=== PATIENT | male | born 1960 ===

== ENCOUNTER 2019-01-17 17:26 | Emergency (ER) | payer SELFPAY ==
--- NOTE | 2019-01-17 17:34 | UC ---
Hand/Wrist HPI - HPI Summary HPI Summary: 58 yo male presents with LEFT middle finger injury. He tells me that he was at work and a piece of machinery crushed the tip of his left middle finger. He states he normally would just put a bandage on it and continue about his day, but his work made him get checked out. He is right handed. Has not iced the area or taken anything OTC for pain. - History Of Current Complaint Stated Complaint: FINGER INJURY Time Seen by Provider: 01/17/19 17:34 Hx Obtained From: Patient Onset/Duration: Sudden Onset Severity Initially: Mild Severity Currently: Mild Pain Intensity: 2 Pain Scale Used: 0-10 Numeric - Allergies/Home Medications Allergies/Adverse Reactions: Allergies Allergy/AdvReac Type Severity Reaction Status Date / Time No Known Allergies Allergy Verified 01/17/19 17:49 PMH/Surg Hx/FS Hx/Imm Hx - Additional Past Medical History Additional PMH: None - Family History Known Family History: Positive: Unknown - Social History Occupation: Employed Full-time Lives: With Family Alcohol Use: Occasionally Substance Use Type: None Smoking Status (MU): Current Every Day Smoker Review of Systems All Other Systems Reviewed And Are Negative: Yes Constitutional: Positive: Negative Skin: Positive: Other - lac left middle finger Respiratory: Positive: Negative Cardiovascular: Positive: Negative Neurovascular: Positive: Negative Musculoskeletal: Positive: Other: - Left middle finger crush injury Neurological: Positive: Negative Psychological: Positive: Negative Physical Exam - Summary Physical Exam Summary: GENERAL: NAD. WDWN. No pain distress. SKIN: LEFT MIDDLE FINGER: Distal tip with 2mm superficial laceration. Mild TTP. Dirty wound. NECK: Supple. Nontender. No lymphadenopathy. CHEST: No accessory muscle use. Breathing comfortably and in no distress. CV: Pulses intact. Cap refill <2seconds MSK: LEFT MIDDLE FINGER: FROM without pain. NEURO: Alert. PSYCH: Age appropriate behavior. Triage Information Reviewed: Yes Vital Signs: Vital Signs: Temp Pulse Resp BP Pulse Ox 99.1 F 80 16 114/69 98 01/17/19 17:44 01/17/19 17:44 01/17/19 17:44 01/17/19 17:44 01/17/19 17:44 Vital Signs Reviewed: Yes Hand/Wrist Course/Dx - Course Course Of Treatment: tdap updated today as he is unsure the date of his last tetanus. The wound was cleansed with NS. I advised pt to have an XR today to eval for fracture, but he declined and does not want an XR today. I made him aware that without an XR to establish a fracture, I cannot insure him proper healing - he continued to decline. Wound was bandaged with tubegauze. Will place him on keflex given dirty wound and he works with his hands in a machine shop. - Differential Dx/Diagnosis Provider Diagnosis: Crushing injury of left middle finger Discharge - Sign-Out/Discharge Documenting (check all that apply): Patient Departure All imaging exams completed and their final reports reviewed: No Studies - Discharge Plan Condition: Stable Disposition: HOME Prescriptions: Cephalexin CAP* [Keflex CAP*] 500 mg PO TID #21 cap Patient Education Materials: Crush Injury (ED) Referrals: No Primary Care Phys,NOPCP [Primary Care Provider] - Additional Instructions: If you develop a fever, shortness of breath, chest pain, new or worsening symptoms - please call your PCP or go to the ED. 1) Apply a bandage until well healed and take your antibiotic Your tetanus shot was updated today - Billing Disposition and Condition Condition: STABLE Disposition: Home - Attestation Statements Provider Attestation: I did not see this patient. I was available for consult.
[2019-01-17 17:49] VITALS: BP 114/69
[2019-01-17] MEDS ORDERED: Tetan/Diph/Pertus SYR(Tdap)* 0.5 ML SYR(BOOSTRIX) use SYR IM ONE (17:56)
== END 2019-01-17 18:30 | disposition home or self-care (01) ==
LOC: UCEAST 17:26
DX: S67.193A Crushing injury of left middle finger, initial encounter (principal); W31.9XXA Contact with unspecified machinery, initial encounter; Y92.9 Unspecified place or not applicable; Y99.0 Civilian activity done for income or pay; Z23 Encounter for immunization; F17.200 Nicotine dependence, unspecified, uncomplicated
CPT/HCPCS: 90471; 90715; 99203; G0463